=== PATIENT | female | born 1995 | race African-American/Black ===

== ENCOUNTER 2020-09-03 16:40 | Emergency (ER) | payer OTHER ==
[~2020-09-03] VITALS: Ht 154.9 cm; Wt 81.0 kg
--- NOTE | 2020-09-03 17:44 | PHYS DOC ---
Past History Past Medical History: No Pertinent History Past Surgical History: Smoking: Non-smoker Alcohol Use: None Drug Use: None General Adult EDM: Chief Complaint: VAGINAL BLEEDING HPI: HPI: Patient is a 24 year old female who presents with vaginal spotting during . She states she is 8 wks 5d preg by LMP (Jul 04) with both a positive urine home preg test and a confirmed urine preg test at a facility. She states for the past three days she has had intermittent vaginal spotting with some low back cramping that resolved with Tylenol. She denies any nausea or vomiting, extreme abdominal pain or vaginal discharge. She states bleeding is less than a pad. This is her second , she has a healthy 7 yr old at home that was delivered via c section, and first was healthy without complications. She had her mirena removed in May and her and her have been trying to become . She does have her first OBGYN appointment scheduled for Sep 18. She has no other complaints or concerns at this time. Review of Systems: Review of Systems: Constitutional: Denies fever or chills Eyes: Denies redness or eye pain HENT: Denies nasal congestion or sore throat Respiratory: Denies cough or shortness of breath Cardiovascular: Denies chest pain or palpitations GI: Denies abdominal pain, nausea, or vomiting : Denies dysuria or hematuria, states she has had some vaginal spotting the past 3 days, does not fill a pad. Musculoskeletal: Denies joint pain, states shes had some low back pain that re solved with Tylenol. Integument: Denies rash or skin lesions Neurologic: Denies headache, focal weakness or sensory changes Complete systems were reviewed and found to be within normal limits, except as documented in this note. Physical Exam: PE: Constitutional: Well developed, well nourished, no acute distress, non-toxic appearance HENT: Normocephalic, atraumatic Eyes: PERRL, EOMI, conjunctiva normal, no discharge Neck: Normal range of motion, no tenderness, supple Lungs & Thorax: No respiratory distress, equal chest rise and fall Heart: RRR no m/r/g Abdomen: Soft, no tenderness : Pt left before speculum exam could be performed. Skin: Warm, dry, no erythema, no rash Back: No tenderness, no CVA tenderness Extremities: No tenderness, ROM intact, no edema Neurologic: Alert and oriented X 3, normal motor function, normal sensory function, no focal deficits noted Psychologic: Affect normal, judgment normal Current Patient Data: Labs: Laboratory Tests Test 09/03/20 17:11 POC Urine HCG, Qualitative hcg positive (Negative) EKG: EKG: [] Radiology/Procedures: Radiology/Procedures: PROCEDURE: OB <14 WKS W/TV INDICATION: Reason: vaginal bleeding in / Spl. Instructions: / History: COMPARISON: None. TECHNIQUE: Grayscale and color ultrasound images uterus and adnexa. Transabdominal and transvaginal images obtained. Transvaginal images were needed to better visualize structures that were limited on transabdominal imaging. FINDINGS: Uterus: 100 x 67 x 44 mm. Intrauterine gestational sac is identified with a pole with a crown-rump length of 13 mm. No heartbeat is seen at this time. The maternal cervix is closed. Gestational sac is small in size in relation to the pole. Estimated gestational age of 7 weeks and 0 days. Right Ovary: 40 x 24 x 17 mm. Left Ovary: 24 x 19 x 15 mm. Vascular flow identified to bilateral ovaries. Hypoechoic lesion right ovary measuring 17 mm. Could be from causes such as hemorrhagic or corpus luteum cyst. IMPRESSION: * Intrauterine is identified without heartbeat seen. This is concerning for early failure. Electronically signed by: Vicente Quan MD (09/03/2020 6:04 PM) [id number] Course & Med Decision Making: Course & Med Decision Making Pertinent Labs and Imaging studies reviewed. (See chart for details) Juany Reeves is a 24 yo that is 8 wks 5d preg via + home test and LMP, that presents today with three days of vaginal bleeding. Her urine preg came back positive and the bhcg quant came back 10,194 which is more consistent with 5-6wks and less than we would expect based on her LMP and US. She received an US that showed a fetus measuring around 7 wks gestation with no heart beat. Her blood type is A positive so there is no indication for rhogam. She left to go home to her 7 yo son at home before a speculum exam was performed. Due to her US and bhcg she has most likely had an incomplete . We discussed these results and I have instructed her to follow up with her OBGYN or return to the hospital within 48 hrs to have another bhcg quant to confirm loss. Patient stable for discharge with outpatient follow-up with PCP/OBGYN. Discussed findings and plan with patient, who acknowledges understanding and agreement. Fadia Disclaimer: Fadia Disclaimer: This electronic medical record was generated, in whole or in part, using a voice recognition dictation system. Departure Departure: Impression: Primary Impression: Incomplete miscarriage Disposition: 01 DC HOME SELF CARE/HOMELESS Condition: STABLE Referrals: PCP,UNKNOWN (PCP) Patient Instructions: Incomplete Miscarriage Additional Instructions: Please take copy of your ultrasound report and your BHCG level to your [facility] for re-evaluation. You need a repeat BHCG level in 48 hours. Return to ED here or at [facility] if symptoms worsen. Address: [address] [place] [address] Take Tylenol for pain or discomfort. ABDIRASHID LORA DO Sep 03, 2020 17:44
--- NOTE | 2020-09-03 18:06 | RAD ---
INDICATION: Reason: vaginal bleeding in / Spl. Instructions: / History: COMPARISON: None. TECHNIQUE: Grayscale and color ultrasound images uterus and adnexa. Transabdominal and transvaginal images obtained. Transvaginal images were needed to better visualize structures that were limited on transabdominal imaging. FINDINGS: Uterus: 100 x 67 x 44 mm. Intrauterine gestational sac is identified with a pole with a crown-rump length of 13 mm. No fe lily heartbeat is seen at this time. The maternal cervix is closed. Gestational sac is small in size in relation to the pole. Estima sean gestational age of 7 weeks and 0 days. Right Ovary: 40 x 24 x 17 mm. Left Ovary: 24 x 19 x 15 mm. Vascular flow identified to bilateral ovaries. Hypoechoic lesion right ovary measuring 17 mm. Could be from causes such as hemorrhagic or corpus lut eum cyst. IMPRESSION: * Intrauterine is identified without heartbeat seen. This is concerning for early p regnancy failure. Electronically signed by: Vicente Quan MD (09/03/2020 6:04 PM) [id number]
[2020-09-03 18:32] LABS: BASO # 0.1 x10^3/uL (0.0-0.2); BASO % 1 % (0-3); EOS # 0.1 x10^3/uL (0.0-0.7); EOS % 1 % (0-3); HEMATOCRIT 40.1 % (36.0-47.0); HEMOGLOBIN 13.1 g/dL (12.0-15.5); LYMPH # 1.7 x10^3/uL (1.0-4.8); LYMPH % 19 % (24-48); MEAN CORPUSCULAR HEMOGLOBIN 30 pg (25-35); MEAN CORPUSCULAR HGB CONC 33 g/dL (31-37); MEAN CORPUSCULAR VOLUME 91 fL (79-100); MONO # 0.8 x10^3/uL (0.0-1.1); MONO % 9 % (0-9); NEUT # 6.1 x10^3uL (1.8-7.7); NEUT % 70 % (31-73); PLATELET COUNT 339 x10^3/uL (140-400); RED BLOOD COUNT 4.39 x10^6/uL (3.50-5.40); RED CELL DISTRIBUTION WIDTH 12.8 % (11.5-14.5); WHITE BLOOD COUNT 8.7 x10^3/uL (4.0-11.0)
[2020-09-03 18:51] LABS: CALCIUM 9.1 mg/dL (8.5-10.1); CREATININE 0.6 mg/dL (0.6-1.0); GFR 148.6; POTASSIUM 3.4 mmol/L (3.5-5.1)
[2020-09-03 19:03] LABS: ALBUMIN 4.2 g/dL (3.4-5.0); ALBUMIN/GLOBULIN RATIO 1.1 (1.0-1.7); TOTAL BILIRUBIN 0.3 mg/dL (0.2-1.0)
[2020-09-03 19:16] LABS: BACTERIA,URINE FEW /HPF (0-FEW); BILIRUBIN,URINE NEG (NEG); CLARITY,URINE CLEAR; COLOR,URINE YELLOW; GLUCOSE,URINE NEG (NEG); NITRITE,URINE NEG (NEG); SQUAMOUS EPITHELIAL CELL,UR MANY /LPF; UROBILINOGEN,URINE 0.2 mg/dL (0.2 mg/dL); WBC,URINE 0 /HPF (0-4)
[2020-09-03 21:00] VITALS: BP 135/89
== END 2020-09-03 20:59 | disposition home or self-care (01) ==
LOC: ER 16:40
DX: O03.4 Incomplete spontaneous abortion without complication (principal); M54.5 Low back pain; Z98.890 Other specified postprocedural states; Z3A.08 8 weeks gestation of pregnancy
CPT/HCPCS: 36415; 76801; 76817; 80053; 81001; 81025; 83735; 84702; 85025; 86900; 86901; 99284